=== PATIENT | male | born 2000 | race Caucasian/White ===

== ENCOUNTER → 2021-12-01 11:05 | Outpatient (CLI) | payer OTHER, SELFPAY ==
--- NOTE | ~2021-12-01 | XR_ITS ---
EXAM: XR abdomen/kub 1V HISTORY: R10.9 - Unspecified abdominal pain COMPARISON: 10/07/08 FINDINGS: Clear lung bases. Normal bowel gas pattern. No organomegaly. No abnormal abdominal calcifi cation. Regional soft tissues normal for age. Bilateral cam morphology of the femoral heads. IMPRESSION: No acute finding in the abdomen. Femoral head morphology may predispose this patient to impingement a nd early onset hip osteoarthritis. Reviewed, dictated and finalized at location K. IMPRESSION: No acute finding in the abdomen. Femoral head morphology may predispose this pa tient to impingement and early onset hip osteoarthritis.
== END ==
PROVIDERS: PCP Physician Assistant; Visit Provider Physician Assistant
DX: R10.9 Unspecified abdominal pain (principal)
CPT/HCPCS: 74018